=== PATIENT | female | born 2000 | race Two or more races ===

== ENCOUNTER 2024-02-16 20:05 | Observation (INO) | payer MEDICAID, SELFPAY ==
[2024-02-16 20:05] VITALS: BMI 39.8
[2024-02-16 20:20] VITALS: TEMP 36.9
--- NOTE | 2024-02-16 20:32 | XR_ITS ---
Examination: Transvaginal ultrasound of the pelvis, complete Technique: Transvaginal sonographic images pelvis performed using rutledge scale imaging Exam date and time: February 16, 20242048 hrs. Indications: Labor evaluation, vaginal bleeding beginning 1900 hrs. Today Findings: Cervix 3.3 cm with mild free fluid measuring up to 7 mm in thickness Impression: Cervix 3.3 cm transverse dimension 7 mm.
--- NOTE | 2024-02-16 20:33 | XR_ITS ---
Examination: Complete OB ultrasound greater than 14 weeks Date and time of exam: February 16, 2024 2053 hrs. Indications: Vaginal bleeding beginning 1900 hrs. Today. Findings: Viable intrauterine single fetus with single amniotic sac presentation cephalic Cardiac motion 162 BPM Placenta posterior grade 2 Umbilical cord insertion seen Amniotic fluid index 13.3 cm spine posterior maternal right Right ovary obscured by bowel gas Left ovary 3.4 x 1.9 x 2.5 cm arterial flow. Composite estimated gestational age based on BPD, head circumference, abdominal circumference, femur length is 24 weeks 1 day Estimated weight 676 g. Survey of intracranial anatomy, spinal anatomy, abdominal anatomy, four-chamber heart performed with no abnormalities identified. Impression: Viable intrauterine gestation cephalic presentation.
[2024-02-16 21:50] VITALS: BP 129/72; PULSE 100
== END 2024-02-16 22:58 | disposition home or self-care (01) ==
PROVIDERS: Admitting Provider Obstetrics & Gynecology; PCP Family Medicine; Visit Provider Obstetrics & Gynecology
DX: O46.92 Antepartum hemorrhage, unspecified, second trimester (principal); Z3A.24 24 weeks gestation of pregnancy
CPT/HCPCS: 59899; 76805; 76830

== ENCOUNTER 2024-02-19 02:53 | Inpatient (IN) | payer MEDICAID, SELFPAY ==
[2024-02-19] VITALS (17 sets, daily range): BP systolic 108–133; BP diastolic 59–78; PULSE 70–114; RESP 16–21; TEMP 36.3–36.8; O2SAT 97–100; BMI 38.9
--- NOTE | 2024-02-19 03:22 | ESHP_ITS ---
Documentation for date of: 02/19/24 OB Labor/Induct. HPI History of Present Illness : 2 Para: 1 Gestational Age (weeks): 25 Gestational Age (days): 1 History of present illness: 23-year-old G2, P1 who comes at 25 weeks and 1 day with active vaginal bleeding for the last hour Patient has history of delivery at 25 weeks for which she had a primary due to breech presentation care is otherwise unremarkable except for history of short cervix on progesterone Review of Systems Allergic/Immunologic Comments: Denies Past Medical History Surgical History OTHER SURGICAL HX: c-sec x1 Meds Home Medications and Allergies Home Medications ?Medication ?Instructions ?Recorded ?Confirmed ?Type vits no.124-ferrous fum 1 tab PO DAILY 02/16/24 02/19/24 History 27 mg iron-folic acid 800 mcg tablet ( Vitamin) progesterone micronized 200 mg 1 mg HS 02/16/24 02/19/24 History capsule Allergies Allergy/AdvReac Type Severity Reaction Status Date / Time No Known Allergies Allergy Verified 02/19/24 03:35 OB Exam Physical Exam Vital signs: Pulse Ox 99 02/19/24 03:18 Routine Abdominal Exam Comments: , Nontender Detailed Labor and Delivery Exam Dilation (cm): 8 Effacement (%): 100 position: Transverse 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 Active labor. Transverse back down presentation OB Assessment & Plan Additional Plan Additional Plan Comment: Admit to labor and delivery. Admission labs. Will prepare for repeat
[2024-02-19] MEDS: FAMOTIDINE INJ 10 MG/ML VIAL 2 ML 20 MG IV (03:36)
[2024-02-19] MEDS: BETAMET ACET/BETAMET NA PH (Celestone) 6 MG/ML VIAL IM (03:36)
[2024-02-19] MEDS: ceFAZolin/D5W 2 GM IV 2 GM/100 ML BAG IV (03:36)
[2024-02-19] MEDS: CITRIC ACID/SODIUM CITR 15 ML UDC (BICITRA) 30 ML PO (03:39)
[2024-02-19] MEDS: RINGERS LACTATED 1000 ML 1,000 ML 100 ML IV (03:39)
[2024-02-19 03:44] LABS: Basophils % (Auto) 0 % (0-2.5); Eosinophils # (Auto) 0.1 Thou/mm3 (0.0-0.5); Eosinophils % (Auto) 1 % (0-10); Hematocrit 37.1 % (36.0-46.0); Hemoglobin 12.6 g/dL (12.0-16.0); Immature Granulocytes % (Auto) 0 % (0-0); Immature Granulocytes Auto 0.06 Thou/mm3 (0.00-0.00); Lymphocytes # (Auto) 3.4 Thou/mm3 (1.0-4.8); Lymphocytes % (Auto) 21 % (10-50); Mean Corpuscular Volume 85 fL (80-100); Monocytes # (Auto) 0.8 Thou/mm3 (0.0-0.8); Monocytes % (Auto) 5 % (0-12); Neutrophils # (Auto) 11.6 Thou/mm3 (1.8-7.7); Neutrophils % (Auto) 73 % (37-80); Nucleated Red Blood Cell % 0 /100 WBC (0); Platelet Count 312 Thou/mm3 (140-440); RDW Standard Deviation 40.3 fL (36.4-46.3); Red Blood Count 4.35 Miln/mm3 (4.00-5.20)
[2024-02-19 04:02] LABS: Alanine Aminotransferase 21 U/L (10-49); Albumin, Serum 4.7 gm/dL (3.5-5.0); Albumin/Globulin Ratio 1.9 (1.2-2.2); Alkaline Phosphatase 89 U/L (46-116); Anion Gap 10 (7-16); Aspartate Amino Transferase 22 U/L (0-34); BUN/Creatinine Ratio 8 Ratio (12-20); Bilirubin,Total 0.4 mg/dL (0.3-1.2); Blood Urea Nitrogen 5 mg/dL (9-23); Calcium 9.9 mg/dL (8.3-10.6); Calcium (Corrected) 9.9 mg/dL (8.5-10.1); Chloride 106 mMol/L (98-107); Creatinine (Component) 0.6 mg/dL (0.6-1.3); Globulin 2.5 gm/dL (2.3-3.5); Glucose 85 mg/dL (74-106); Osmolality,Calculated 271 (275-295); Potassium 3.7 mMol/L (3.4-5.1); Sodium 138 mMol/L (136-145); Total Protein 7.2 gm/dL (5.7-8.2); eGFR > 60 See Note
[2024-02-19 04:03] LABS: Partial Thromboplastin Time 28.2 Seconds (22.0-36.0); Prothrombin Time 10.6 Seconds (9.0-12.2)
[2024-02-19 04:04] LABS: Fibrinogen 633 mg/dL (175-375)
[2024-02-19 04:20] LABS: Syphilis Nonreactive (Nonreactive)
--- NOTE | 2024-02-19 04:24 | ESOP_ITS ---
Operative Note - ANTHROPOLOGY AND ARCHEOLOGY INSTRUCTOR Procedure Date of procedure: 02/19/24 Procedure Performed: Repeat . Classical uterine incision Indication: IUP at 25 weeks and 1 day with previous section x 1 in active labor and transverse presentation Pre-Op diagnosis: IUP at 25 weeks and 1 day. Previous section x 1. Active phase of labor at 8 cm and transverse presentation Post-Op diagnosis: IUP at 25 weeks and 1 day. Previous section x 1. Viable male Active phase of labor at 8 cm and transverse presentation Anesthesia type: Spinal Procedure description: The patient was taken to the OR, spinal anesthesia was used and was adequate.? 2 g of Ancef were given for infection prophylaxis.? She was prepped and draped in dorsal supine position.? ?A Pfannenstiel skin incision was made with a scalpel Incision was carried down through the fascia with the Bovie and carried out to the fascia Peritoneum was? entered bluntly. The uterine vertical incision was performed and extended bluntly.? Baby was noted to be transverse back down and delivered from vertex presentation through internal rotation without any complications. ?Nose and mouth were suctioned on the operative field, cord was then clamped and cut.? The was handed off to the nurse.? Cord blood and gases waere obtained. IV oxytocin? was initiated to facilitate uterine contractions. The uterus was exteriorized.? The inside of the uterus was then cleaned with a lap sponge to ensure complete removal of the placental membranes without complications. Then the hysterotomy was repaired along the uterine incision with 0 Vicryl in a locked fashion and? then in a running fashion with the same suture. 1g of TXA IV was given. The uterus was inspected in the abdomen and noted to be firm,? the uterine incision was reinspected with excellent hemostasis noted after 0.2mg of methergine IM. Fascia layer was closed with an 0 Vicryl in a running fashion Subcutaneous layer was closed with plain gut Skin was close with 4-0 Monocryl Specimen: none Estimated blood loss (ml): 600 Findings: Normal uterus, tubes, ovaries. Transverse back down presentation Complications: none Surgical staff Operation Date: 02/19/24 03:45 <No data on this case meets the specified criteria> Diagnosis Problem List Completed Was Problem List Reviewed/Reconciled?: Yes
--- NOTE | 2024-02-19 04:48 | SUR.PHASEI ---
Arrived to recovery bay 1 via bed. Report received from Chan BLUM, Mau GROVES at bedside. Resting with eyes open, no c/o pain or discomfort. Suprapubic transverse dressing looks D/D/I. Polk cath intact, draining clear yellow urine. LR with 20u Pitocin infusing via IV. No s/o distress or discomfort. Karyna pad C/D/I. No vaginal drainage with fundal massage at this time.
--- NOTE | 2024-02-19 05:45 | SUR.PHASEI ---
Report given to Vivi BLUM.
--- NOTE | 2024-02-19 05:50 | SUR.PHASEI ---
Taken to room 469 via bed. Resting with eyes open, responding to questions and commands appropriately. Transverse suprapubic dressing C/D/I. Polk catheter draining clear yellow urine, intact. No c/o pain or discomfort. No s/o distress. Vivi RN in at bedside, at bedside. Call light within reach. Aware not to attempt getting up on her own until spinal wears off completely.
--- NOTE | 2024-02-19 06:50 | PD.LDDELS ---
Data (Thacker) Data Hx Section: Yes : 2 Para: 1 Term: 0 : 1 : 0 Delivery Data (Thacker) Labor Data ROM Date: 02/19/24 ROM Time: 03:57 Rupture Type: AROM Amniotic Fluid: Clear Delivery Data Labor Onset Stage 1 Date: 02/19/24 Labor Onset Stage 1 Time: 02:20 Labor Onset Stage 2 Date: 02/19/24 Labor Onset Stage 2 Time: 03:58 Delivery Date: 02/19/24 Delivery Time: 03:58 Placenta Delivery Date: 02/19/24 Placenta Delivery Time: 03:59 Delivered by: Ventura Landers Delivery nurse: , FUADX-SCRIPT Other staff at delivery: 2nd Nurse Other staff at delivery: Nursery Nurse Other staff at delivery: Antique Clocks Repairer Other staff at delivery: Batsheva Ruvalcaba Other staff at delivery: Nova Schaeffer Other staff at delivery: DR SHANE Delivery Method Delivery: Delivery Type: Repeat Presentation: Transverse Anesthesia Type Primary Anesthesia: Spinal Placenta Placenta Delivery: Manual Chitina Data (Thacker) Chitina Data Gender: Male Weight Grams: 760 1 Minute Total: 3 5 Minute Total: 6 10 Minute Total: 6
[2024-02-19] MEDS: KETOROLAC INJ 30 MG/ML VIAL IVP ×3 (07:49→21:21)
--- NOTE | 2024-02-19 08:38 | PC.LAC ---
Set mom up with pumping system, showed her how to assemble the kit and demonstrated on the pump how to start, increase/decrease suction. Explained that she should be pumping at least every 2-3 hours for 20 minutes both breasts. Explained that she many not see anything come out at this time but to do the full 20 minutes in order to stimulate breasts to increase milk supply. explained to start with breast massage on both sides to help with let down. Mom understood, was going to take a nap at this time and then pump afterward.
--- NOTE | 2024-02-19 08:52 | PC.LAC ---
Pump in room, but not set up. Mom stated has not done any pumping at this time. Assembled kit to pump for mom's first use. Went through the assembly instruction and demonstration on how to use the pump. Instructed mom that she should be pumping at least every 2-3 hours to increase milk supply. Explained to hand massage prior to pump to help with let down. Explained collection of colostrum. stated would bring her syringes to help with storage. Mom understood, wanted to take a nap at this time. she stated would pump when she woke up.
[2024-02-19] MEDS: ONDANSETRON INJ 2 MG/ML INJ 2 ML 4 MG IV (09:34)
[2024-02-19] MEDS: OXYTOCIN in NS 20 units 20 UNIT/1,000 ML BAG 125 UNIT IV (12:25)
--- NOTE | 2024-02-19 12:42 | ESPR_ITS ---
Subjective Subjective Interval history: Delivery type: Patient doing well this morning. No acute complaints. Ambulating, tolerating p.o. and voiding without difficulty. HTN/Pre-Eclampsia screen: No chest pain, shortness of breath, headache, visual changes, epigastric or right upper quadrant pain. Breast-feeding, lochia diminishing. Bowel: Flatus+/ BM+ Exam Vital Signs Temp Pulse Resp BP Pulse Ox O2 Del Method O2 Flow Rate 97.7 F 83 18 126/78 97 Room Air 2 02/19/24 07:50 02/19/24 07:50 02/19/24 07:50 02/19/24 07:50 02/19/24 07:50 02/19/24 07:50 02/19/24 05:15 Constitutional Constitutional: no acute distress Routine HEENT Exam Head: Present normocephalic and atraumatic Eye: Present EOMI and PERRL ENT: Present mucous membranes moist Routine Neck Exam Neck: Present supple and trachea midline Routine Respiratory Exam Respiratory: Present chest non-tender, lungs clear, normal breath sounds and no resp distress Routine Cardiovascular Exam Cardiovascular: Present RRR Routine Abdominal Exam Abdominal: Present soft and normoactive bowel sounds Routine Extremities Exam Extremities: Present full ROM Routine Skin Exam Skin: Present intact, dry and warm Routine Neurological Exam Neurological: Present alert, oriented X3 and CN II-XII intact Routine Psychiatric Exam Psychiatric: Present normal affect and normal thought process Objective Labs 02/19/24 03:16 02/19/24 03:16 Labs: Laboratory Results - last 24 hr 02/19/24 03:16 WBC 16.0 H RBC 4.35 Hgb 12.6 Hct 37.1 MCV 85 MCH 29.0 MCHC 34.0 RDW Std Deviation 40.3 Plt Count 312 Neut % (Auto) 73 Lymph % (Auto) 21 [place] % (Auto) 5 Eos % (Auto) 1 Baso % (Auto) 0 Neut # (Auto) 11.6 H Lymph # (Auto) 3.4 [place] # (Auto) 0.8 Eos # (Auto) 0.1 Baso # (Auto) 0.0 Immature Gran # (Auto) 0.06 H Absolute Nucleated RBC 0.00 Immature Gran % 0 Nucleated RBC % 0 PT 10.6 INR 1.0 APTT 28.2 Fibrinogen 633 H* Sodium 138 Potassium 3.7 Chloride 106 Carbon Dioxide 22.0 Anion Gap 10 BUN 5 L Creatinine 0.6 Estim Creat Clear Calc Not Performed. eGFR > 60 BUN/Creatinine Ratio 8 L Glucose 85 Calculated Osmolality 271 L Calcium 9.9 Corrected Calcium 9.9 Total Bilirubin 0.4 AST 22 ALT 21 Alkaline Phosphatase 89 Total Protein 7.2 Albumin 4.7 Globulin 2.5 Albumin/Globulin Ratio 1.9 Syphilis Serology Nonreactive Blood Type O Positive Antibody Screen NEGATIVE Blood Bank Wristband ID Yes Assessment & Plan Problem List (1) delivery delivered: Status: Acute Assessment and plan: 1. Continue routine /post-op care 2. Labs reviewed, cbc appropriate 3. Remove dressing/Polk 4. Encourage to ambulate, shower 5. Encourage PO intake, breast feeding Time Spent With Patient Time: Total time spent is greater than 50% in coordination of care (as documented) at patient's floor/unit and/or counseling patient:
[2024-02-20 00:05] VITALS: BP 123/71; PULSE 77; RESP 18; TEMP 36.9; O2SAT 98
[2024-02-20 04:15] VITALS: BP 103/66; PULSE 84; RESP 18; TEMP 36.9; O2SAT 97
[2024-02-20 05:43] LABS: Basophils % (Auto) 0 % (0-2.5); Eosinophils % (Auto) 0 % (0-10); Hematocrit 27.3 % (36.0-46.0); Hemoglobin 9.3 g/dL (12.0-16.0); Immature Granulocytes % (Auto) 1 % (0-0); Immature Granulocytes Auto 0.09 Thou/mm3 (0.00-0.00); Lymphocytes # (Auto) 2.3 Thou/mm3 (1.0-4.8); Lymphocytes % (Auto) 13 % (10-50); Mean Corpuscular HGB Conc 34.1 g/dl (31.0-37.0); Mean Corpuscular Hemoglobin 28.9 pg (25.0-35.0); Mean Corpuscular Volume 85 fL (80-100); Monocytes # (Auto) 0.9 Thou/mm3 (0.0-0.8); Monocytes % (Auto) 5 % (0-12); Neutrophils # (Auto) 14.9 Thou/mm3 (1.8-7.7); Neutrophils % (Auto) 82 % (37-80); Nucleated Red Blood Cell % 0 /100 WBC (0); Platelet Count 245 Thou/mm3 (140-440); RDW Standard Deviation 40.2 fL (36.4-46.3); Red Blood Count 3.22 Miln/mm3 (4.00-5.20); White Blood Count 18.2 Thou/mm3 (3.6-11.0)
[2024-02-20 07:48] VITALS: BP 116/75; PULSE 79; RESP 17; TEMP 36.9; O2SAT 98
--- NOTE | 2024-02-20 07:48 | PC.LAC ---
Follow up with mom regarding pumping. She states that overnight she only got about 1.5 mls of colostrum. Explained that colostrum is hard to collect in pumping system because of its thick consistency. Explained to try hand expression prior to pumping with electric pump for collection. Also encouraged her to continue pumping every 2-3 hours to ensure that her milk supply is protected while she is from her baby. Parents understood
[2024-02-20 07:53] VITALS: PULSE 82; RESP 16; O2SAT 97
--- NOTE | 2024-02-20 08:36 | PD.LDPPPRG ---
Subjective Subjective Interval history: Delivery type: Patient doing well this morning. No acute complaints. Ambulating, tolerating p.o. and voiding without difficulty. HTN/Pre-Eclampsia screen: No chest pain, shortness of breath, headache, visual changes, epigastric or right upper quadrant pain. Breast-feeding, lochia diminishing. Bowel: Flatus+/ BM+ Exam Vital Signs Temp Pulse Resp BP Pulse Ox O2 Del Method O2 Flow Rate 98.4 F 82 16 116/75 97 Room Air 2 02/20/24 07:48 02/20/24 07:53 02/20/24 07:53 02/20/24 07:48 02/20/24 07:53 02/20/24 07:48 02/19/24 05:15 Constitutional Constitutional: no acute distress Routine HEENT Exam Head: Present normocephalic and atraumatic Eye: Present EOMI and PERRL ENT: Present mucous membranes moist Routine Neck Exam Neck: Present supple and trachea midline Routine Respiratory Exam Respiratory: Present chest non-tender, lungs clear, normal breath sounds and no resp distress Routine Cardiovascular Exam Cardiovascular: Present RRR Routine Abdominal Exam Abdominal: Present soft and normoactive bowel sounds Routine Extremities Exam Extremities: Present full ROM Routine Skin Exam Skin: Present intact, dry and warm Routine Neurological Exam Neurological: Present alert, oriented X3 and CN II-XII intact Routine Psychiatric Exam Psychiatric: Present normal affect and normal thought process Objective Labs 02/20/24 05:20 02/19/24 03:16 Labs: Laboratory Results - last 24 hr 02/20/24 05:20 WBC 18.2 H RBC 3.22 L Hgb 9.3 L D Hct 27.3 L MCV 85 MCH 28.9 MCHC 34.1 RDW Std Deviation 40.2 Plt Count 245 D Neut % (Auto) 82 H Lymph % (Auto) 13 [place] % (Auto) 5 Eos % (Auto) 0 Baso % (Auto) 0 Neut # (Auto) 14.9 H Lymph # (Auto) 2.3 [place] # (Auto) 0.9 H Eos # (Auto) 0.0 Baso # (Auto) 0.0 Immature Gran # (Auto) 0.09 H Absolute Nucleated RBC 0.00 Immature Gran % 1 H Nucleated RBC % 0 Assessment & Plan Problem List (1) delivery delivered: Status: Acute Assessment and plan: PPD/POD#1 1. Continue routine /post-op care 2. Labs reviewed, cbc appropriate 3. Remove dressing/Polk 4. Encourage to ambulate, shower 5. Encourage PO intake, breast feeding 6. Anticipate discharge home tomorrow after she completes 48 hours Time Spent With Patient Time: Total time spent is greater than 50% in coordination of care (as documented) at patient's floor/unit and/or counseling patient:
[2024-02-20] MEDS: IBUPROFEN TAB 400 MG TABLET 800 MG PO ×2 (08:55→18:23)
[2024-02-20] MEDS: ENOXAPARIN SOD INJ 40 MG/0.4 ML SYRINGE SC (08:55)
[2024-02-20] MEDS: PRENATAL VITAMIN/FE FUM/FA TABLET 1 TAB PO (08:55)
[2024-02-20] MEDS: FERRIC SOD GLUC INJ 250 MG in SODIUM CHLORIDE 0.9% 100 ML 60 MG IV (09:34)
[2024-02-20] MEDS: MEASLES, MUMPS & RUBELLA VACC 0.5 ML VIAL SCi (18:14)
[2024-02-20] MEDS: DIPHTH,PERTUSS(ACELL),TET VAC 0.5 ML VIAL IMi (18:15)
[2024-02-20] MEDS: HYDROcodone/APAP 5/325 TABLET 1 TAB PO (19:20)
[2024-02-20 20:00] VITALS: BP 111/75; PULSE 77; RESP 16; TEMP 36.9; O2SAT 98
[2024-02-21 03:45] VITALS: BP 122/80; PULSE 80; RESP 16; TEMP 36.7; O2SAT 97
[2024-02-21 07:25] VITALS: BP 120/77; PULSE 80; RESP 19; TEMP 36.4; O2SAT 97
--- NOTE | 2024-02-21 07:38 | PD.LDPPPRG ---
Subjective Subjective Interval history: The bedside. Afebrile, tolerating p.o., ambulating, voiding, positive flatus Exam Vital Signs Temp Pulse Resp BP Pulse Ox O2 Del Method O2 Flow Rate 98.1 F 80 16 122/80 97 Room Air 2 02/21/24 03:45 02/21/24 03:45 02/21/24 03:45 02/21/24 03:45 02/21/24 03:45 02/21/24 03:45 02/19/24 05:15 Routine Abdominal Exam Comments: Soft, appropriately tender Uterus firm, below the umbilicus. Incision clean, dry, intact Routine Exam Comments: Lochia similar to menses Routine Extremities Exam Comments: Homans' sign negative Objective Labs 02/20/24 05:20 02/19/24 03:16 Assessment & Plan Problem List (1) delivery delivered: Status: Acute Assessment Comment Assessment comment: 23 years status post repeat at 35 weeks due to labor and transverse presentation with active bleeding. Classical uterine incision Postop day 2 Plan Comment Plan Comment: Routine care. DC home if stable Time Spent With Patient Time: Total time spent is greater than 50% in coordination of care (as documented) at patient's floor/unit and/or counseling patient:
--- NOTE | 2024-02-21 07:39 | PD.LDDS ---
DS: Providers Provider Date of admission: 02/19/24 03:13 Primary care physician: Physician No Primary/Family Admitting Provider: Ventura Landers MD Attending Provider on Admission: Jaren Murphy MD Consults: 02/19/24 04:22 Referral Routine Comment: Attending Provider on DC: Ventura Landers MD Discharging Provider: Ventura Landers MD DS: Diagnosis Problem List Completed Was Problem List Reviewed/Reconciled?: Yes Summary/Hosp Course Brief History: 23-year-old G2, P0202 who came at 25 weeks in active labor in transverse presentation. She had a repeat with classical uterine incision. Her postop course was unremarkable and on postop day 2 she was discharged home Peripartum Data Delivery Method: Classical Procedures: Procedures Operation Date: 02/19/24 03:45 Actual Procedure Side Surgeon p repeat section delivered baby boy @ [id number] Ventura Landers MD Time Spent with Patient Time attestation: Total time spent providing and/or coordinating discharge services: Exam Vital Signs Temp Pulse Resp BP Pulse Ox O2 Del Method O2 Flow Rate 98.1 F 80 16 122/80 97 Room Air 2 02/21/24 03:45 02/21/24 03:45 02/21/24 03:45 02/21/24 03:45 02/21/24 03:45 02/21/24 03:45 02/19/24 05:15 Discharge Plan Plan Patient Disposition: HOME (Self Care) Prescriptions/Referrals Prescriptions/Med Rec: New acetaminophen 325 mg Tablet 650 mg PO Q6HR 7 Days Qty: 28 0RF ibuprofen 400 mg Tablet 800 mg PO Q8HR 7 Days Qty: 21 0RF No Action albuterol sulfate 90 mcg/actuation HFA aerosol inhaler 2 puff inhalation Q6H PRN (Reason: shortness of breath or wheezing) Qty: 8.5 0RF progesterone micronized 200 mg capsule 1 mg HS Patient Comments: INSERT 1 CAPSULE VAGINALLY NIGHLTY AT BEDTIME Vitamin 27 mg iron- 800 mcg Tablet 1 tab PO DAILY Referrals: Jaren Murphy MD [Physician] - (1 to 2 weeks) No Primary/Family,Physician [Primary Care Provider] - Patient/Caregiver Discharge Instructions Education Materials: Understanding Blues, Breast Care After , C Section Dc Print Language: Frisian Activity Restrictions/Additional Instructions: Follow up with OB in 1 week for incision care Stand Alone Forms: Maria A Award Info., Patient Portal Info Letter Discharge Order Discharge Orders: Discharge (Routine); Ordered 02/21/24 Ordered By: Ventura Landers Planned Discharge Date 02/21/24
[2024-02-21] MEDS: IBUPROFEN TAB 400 MG TABLET 800 MG PO (07:56)
[2024-02-21] MEDS: ENOXAPARIN SOD INJ 40 MG/0.4 ML SYRINGE SC (07:56)
[2024-02-21] MEDS: PRENATAL VITAMIN/FE FUM/FA TABLET 1 TAB PO (07:57)
[2024-02-21 08:15] VITALS: PULSE 90; RESP 16; O2SAT 97
[2024-02-21 11:50] VITALS: BP 124/79; PULSE 88; RESP 19; TEMP 36.7; O2SAT 97
--- NOTE | 2024-02-21 12:26 | PC.SS ---
IMPORTER OR EXPORTER conducted bedside contact with the patient to address nursing referral indicating patient delivered pre term and that has been transferred to [facility]. IMPORTER OR EXPORTER introduced self, role and basis of contact. Patient confirmed delivery of . Patient reports decreased level of anxiety. Patient acknowledged that is in ?good hands? at [facility]. Patient stated that 9 year old son was also delivered pre-term. Patient reports consistent contact with [facility]? staff allowing updates on infants progress. FOB, Praveen Armendariz; will be involved with the rearing of the infant. Patient is aligned with WIC, SNAP and TANF. Patient denies history of alcohol/drug abuse. Patient denies CWS intervention. OB services provided by Dr. Huynh. FOB will provide transportation upon discharge. Patient describes possessing support system consisting of FOB and extended family. No further intervention required at this time, social sciences chair will be available to address any further concerns. IMPORTER OR EXPORTER updated bedside nurse.
== END 2024-02-21 14:11 | disposition home or self-care (01) | DRG 540 ==
LOC: S4SX 03:41 → S4NX 03:59
PROVIDERS: Admitting Provider Obstetrics & Gynecology; Visit Provider Obstetrics & Gynecology
PROC: 10D00Z0 Extraction of Products of Conception, High, Open Approach (ICD-10-PCS; CPT 59514; principal; 2024-02-19 03:45)
DX: O60.12X0 Preterm labor second trimester with preterm delivery second trimester, not applicable or unspecified (principal); O34.212 Maternal care for vertical scar from previous cesarean delivery; O32.2XX0 Maternal care for transverse and oblique lie, not applicable or unspecified; Z37.0 Single live birth; Z3A.25 25 weeks gestation of pregnancy
CPT/HCPCS: 36415; 59409; 80053; 85025; 85384; 85610; 85730; 86780; 86850; 86900; 86901; 90707; 90715; 94664; 94762; A4649; J0689; J0702; J1100; J1650; J1885; J2274; J2371; J2405; J2590; J2916; J3010; J3490; J7050; J7120; A9270; J0690; J2270